=== PATIENT | male | born 1955 | race Caucasian/White ===

== ENCOUNTER 2019-03-11 07:50 | Observation (INO) ==
[2019-03-11] MEDS ORDERED: levoFLOXacin 500 MG/100 ML 500 MG/100 ML BAG IVPB ONE (08:14)
[2019-03-11] MEDS ORDERED: Ringers Solution, Lactated 1,000 ML IVC SCH (08:15)
[2019-03-11] MEDS ORDERED: *HR* HYDROmorphone (PF) 1 MG/ML SYRINGE IVP PRN (08:16)
[2019-03-11] MEDS ORDERED: *HR* OxyCODONE Immed Rel 5 MG TABLET PO PRN (08:16)
[2019-03-11] MEDS ORDERED: *HR* Promethazine 25 MG/ML VIAL IVP PRN (08:16)
[2019-03-11] MEDS ORDERED: Ondansetron 4 MG/2 ML VIAL IVP ONE (08:16)
[2019-03-11] MEDS ORDERED: 0.9 % Sodium Chloride 1,000 ML ONE (08:26)
[2019-03-11] MEDS ORDERED: Albuterol 2.5 MG/3 ML NEBULIZER IH ONE (08:47)
[2019-03-11 09:03] LABS: INR 1.1; Prothrombin Time 12.4 Seconds (9.4-12.1)
[2019-03-11] MEDS ORDERED: *HR* Propofol 200 MG/20 ML VIAL IVP ONE (09:09)
[2019-03-11] MEDS ORDERED: Dexamethasone 4 MG/ML VIAL ONE (09:10)
[2019-03-11] MEDS ORDERED: *HR* Rocuronium Bromide 50 MG/5 ML VIAL ONE (09:10)
[2019-03-11] MEDS ORDERED: *HR* FentaNYL (PF) 100 MCG/2 ML VIAL ONE ×3 (09:10→10:22)
[2019-03-11] MEDS ORDERED: Ondansetron 4 MG/2 ML VIAL ONE (09:10)
[2019-03-11] MEDS ORDERED: Lidocaine -MPF 2% 2 ML VIAL ONE (09:10)
[2019-03-11] MEDS ORDERED: *HR* Midazolam HCl 2 MG/2 ML VIAL IVP ONE ×2 (10:09→10:19)
[2019-03-11] MEDS ORDERED: *HR* FentaNYL (PF) 100 MCG/2 ML VIAL IVP ONE ×2 (10:09→10:19)
[2019-03-11] MEDS ORDERED: *HR* Midazolam HCl 2 MG/2 ML VIAL ONE ×2 (10:10→10:22)
[2019-03-11] MEDS ORDERED: Isovue-300 50ML VIAL IVP ONE (10:16)
[2019-03-11] MEDS ORDERED: Isovue-300 50ML VIAL ONE (13:03)
[2019-03-11] MEDS ORDERED: Isovue-300 150 ML INFUS..BTL ONE (13:47)
[2019-03-11] MEDS ORDERED: EPHEDrine 50 MG/ML VIAL ONE (13:48)
[2019-03-11] MEDS ORDERED: *HR* PHENYLEPHRINE 1,000 MCG/10 ML SYRINGE IVP ONE (14:10)
[2019-03-11] MEDS ORDERED: Acetaminophen 325 MG TABLET PO PRN (15:15)
[2019-03-11] MEDS ORDERED: Ondansetron 4 MG/2 ML VIAL IVP PRN (15:15)
[2019-03-11] MEDS ORDERED: *HR* Belladonna Alkaloids/Opium 30 MG RECTAL SUPPOSITORY RC PRN (15:15)
[2019-03-11] MEDS ORDERED: Naloxone 0.4 MG/ML INJ IVP PRN (15:15)
[2019-03-11] MEDS: 0.9 % Sodium Chloride 1,000 ML IVC SCH (15:46)
[2019-03-11] MEDS: *HR* HYDROcodone/Acet 5/325 mg TABLET PO PRN (17:32)
[2019-03-11] MEDS: *HR* OxyCODONE Immed Rel 5 MG TABLET PO PRN (18:19)
[2019-03-12] MEDS: *HR* OxyCODONE Immed Rel 5 MG TABLET PO PRN (01:40)
[2019-03-12 04:44] LABS: Basophils % 0.1 %; Hematocrit 41.4 % (37.5-50.1); Hemoglobin 14.1 g/dL (12.9-16.9); Immature Granulocytes % 0.4 % (0-4); Lymphocytes # 0.5 K/mcL (0.6-4.6); Lymphocytes % 3.9 %; Mean Corpuscular HGB Conc 34.1 g/dL (31.6-35.5); Mean Corpuscular Hemoglobin 29.5 pg (28.0-33.3); Mean Corpuscular Volume 86.6 fL (83.0-100.0); Mean Platelet Volume 10.2 fL (9.4-12.4); Monocytes # 0.3 K/mcL (0.0-1.3); Monocytes % 2.1 %; Neutrophils # 12.5 K/mcL (1.6-8.9); Platelet Count 157 K/mcL (140-400); Red Blood Count 4.78 M/mcL (4.19-5.50); Red Cell Distribution Width 13.4 % (11.5-14.5); Segmented Neutrophils % 93.5 %
[2019-03-12] MEDS: 0.9 % Sodium Chloride 1,000 ML IVC SCH (04:45)
[2019-03-12 04:49] LABS: White Blood Count 13.4 K/mcL (4.3-11.1)
[2019-03-12] MEDS: *HR* HYDROcodone/Acet 5/325 mg TABLET PO PRN (04:53)
[2019-03-12 05:04] LABS: Calcium 9.6 mg/dL (8.6-10.3); Potassium 4.4 mEq/L (3.5-5.1)
[2019-03-12] MEDS ORDERED: Mag Hydrox/Al Hydrox/Simeth 30 ML UDC PO PRN (07:15)
[2019-03-12] MEDS ORDERED: *HR* Pioglitazone 30 MG TABLET PO SCH (07:30)
[2019-03-12] MEDS ORDERED: Lisinopril 20 MG TABLET PO SCH (09:00)
[2019-03-12] MEDS ORDERED: amLODIPine 5 MG TABLET PO SCH (09:00)
[2019-03-12 10:02] VITALS: BP 128/74
== END 2019-03-12 13:52 | disposition home or self-care (01) ==
LOC: 3ANU 07:50 → SAMDAY 07:50 → 3ANU 15:28
PROVIDERS: ADMIT Urology; ATTEND Urology